=== PATIENT | female | born 1985 | race African-American/Black ===

== ENCOUNTER 2019-11-06 15:01 | Emergency (ER) | payer OTHER | END 2019-11-06 15:45 | disposition home or self-care (01) | LOC: ERS 15:01 | DX: J06.9 Acute upper respiratory infection, unspecified (principal); G43.909 Migraine, unspecified, not intractable, without status migrainosus; Z79.899 Other long term (current) drug therapy | CPT/HCPCS: 99283 ==

== ENCOUNTER 2020-11-22 12:57 | Emergency (ER) | payer BC ==
[2020-11-22 15:40] LABS: #Basophils 0.1 thou/uL (0.0-0.2); #Lymphocytes 2.4 thou/uL (1.20-3.40); #Monocytes 0.3 thou/uL (0.11-0.59); #Neutrophils 2.3 thou/uL (1.40-6.50); %Basophils 1.9 % (0.0-1.0); %Eosinophils 0.6 % (0.0-10.0); %Lymphocytes 46.5 % (21.0-51.0); %Monocytes 5.1 % (0.0-10.0); %Neutrophils 45.8 % (42.0-75.0); Hemoglobin 13.4 g/dL (12.0-16.0); Mean Corpuscular HGB CONC 32.5 g/dL (32.0-36.0); Mean Corpuscular Hemoglobin 31.1 pg (27.0-31.0); Mean Corpuscular Volume 95.7 fL (78.0-98.0); Mean Platelet Volume 7.6 fL (7.4-10.4); Platelet Count 339 thou/uL (130-400); RBC Distribution Width 11.5 % (11.5-14.5); Red Blood Cell (RBC) Count 4.29 mill/uL (4.20-5.40); White Blood Cell (WBC) Count 5.1 thou/uL (4.8-10.8)
[2020-11-22] MEDS ORDERED: Ketorolac Tromethamine 30 MG/ML VIAL ONE (15:45)
[2020-11-22 15:56] LABS: ALT (SGPT) 15 U/L (8-55); AST (SGOT) 18 U/L (5-34); Albumin 4.4 g/dL (3.5-5.0); Alkaline Phosphatase 61 U/L (40-110); Anion Gap 14 mmol/L (10-20); BUN (Urea Nitrogen) 9 mg/dL (7.0-18.7); Bilirubin, Total 0.8 mg/dL (0.2-1.2); Calc. Creatinine Clearance 0 mL/min (70-130); Calcium 9.8 mg/dL (7.8-10.44); Carbon Dioxide 21 mmol/L (22-29); Chloride 107 mmol/L (98-107); Globulin 3.4 g/dL (2.4-3.5); Glucose 85 mg/dL (70-105); Lipase 10 U/L (8-78); Potassium 4.3 mmol/L (3.5-5.1); Protein, Total 7.8 g/dL (6.0-8.3); Sodium 138 mmol/L (136-145)
== END 2020-11-22 16:21 | disposition home or self-care (01) ==
LOC: ERS 12:57
DX: S46.912A Strain of unspecified muscle, fascia and tendon at shoulder and upper arm level, left arm, initial encounter (principal); R07.9 Chest pain, unspecified; G43.909 Migraine, unspecified, not intractable, without status migrainosus; Z79.899 Other long term (current) drug therapy; X58.XXXA Exposure to other specified factors, initial encounter
CPT/HCPCS: 36415; 80053; 83690; 84484; 85025; 93005; 96372; J1885

== ENCOUNTER 2023-03-11 19:28 | Observation (INO) | payer OTHER, BC ==
[2023-03-11] MEDS ORDERED: Ondansetron PF 4 MG/2 ML Vial IVP PRN (21:04)
[2023-03-11] MEDS ORDERED: Morphine 4 MG/ML VIAL SLOW IVP PRN (21:04)
[2023-03-11] MEDS ORDERED: traMADol HCl 50 MG TAB PO PRN (21:04)
[2023-03-11] MEDS ORDERED: Morphine 2 MG/ML VIAL SLOW IVP PRN (21:04)
[2023-03-11] MEDS ORDERED: Acetaminophen 325 MG TAB PO PRN (21:04)
[2023-03-11] MEDS ORDERED: Sodium Chloride 0.9% 1,000 ML IV SCH (21:15)
[2023-03-11 21:36] LABS: #Basophils 0.1 thou/uL (0.0-0.2); #Eosinphils 0.1 thou/uL (0.0-0.7); #Monocytes 0.5 thou/uL (0.11-0.59); #Neutrophils 2.9 thou/uL (1.40-6.50); %Basophils 1.3 % (0.0-1.0); %Eosinophils 0.8 % (0.0-10.0); %Lymphocytes 40.9 % (21.0-51.0); %Neutrophils 47.8 % (42.0-75.0); Hematocrit 34.8 % (36.0-47.0); Hemoglobin 11.6 g/dL (12.0-16.0); Mean Corpuscular HGB CONC 33.3 g/dL (32.0-36.0); Mean Corpuscular Hemoglobin 31.4 pg (27.0-31.0); Mean Corpuscular Volume 94.3 fl (78.0-98.0); Mean Platelet Volume 9.3 fL (7.4-10.4); Platelet Count 280 10x3/uL (130-400); RBC Distribution Width 13.2 % (11.5-14.5); Red Blood Cell (RBC) Count 3.69 mill/uL (4.20-5.40)
[2023-03-11 21:55] LABS: Anion Gap 10 mmol/L (10-20); BUN (Urea Nitrogen) 10 mg/dL (7.0-18.7); Calc. Creatinine Clearance 0 mL/min (70-130); Calcium 8.3 mg/dL (7.8-10.44); Carbon Dioxide 17 mmol/L (22-29); Chloride 115 mmol/L (98-107); Estimated GFR 94; Glucose 81 mg/dL (70-105); Potassium 3.6 mmol/L (3.5-5.1); Sodium 138 mmol/L (136-145)
[2023-03-11 22:29] VITALS: BMI 23.3
[2023-03-12] MEDS ORDERED: Lactated Ringer's 1,000 ML IV SCH (01:00)
[2023-03-12 05:24] LABS: #Basophils 0.1 thou/uL (0.0-0.2); #Eosinphils 0.1 thou/uL (0.0-0.7); #Monocytes 0.4 thou/uL (0.11-0.59); #Neutrophils 1.5 thou/uL (1.40-6.50); %Basophils 1.6 % (0.0-1.0); %Eosinophils 1.1 % (0.0-10.0); %Lymphocytes 55.7 % (21.0-51.0); %Monocytes 8.5 % (0.0-10.0); %Neutrophils 32.9 % (42.0-75.0); Hematocrit 34.5 % (36.0-47.0); Hemoglobin 11.5 g/dL (12.0-16.0); Mean Corpuscular HGB CONC 33.3 g/dL (32.0-36.0); Mean Corpuscular Hemoglobin 31.3 pg (27.0-31.0); Mean Platelet Volume 9.6 fL (7.4-10.4); Platelet Count 255 10x3/uL (130-400); RBC Distribution Width 13.4 % (11.5-14.5); Red Blood Cell (RBC) Count 3.67 mill/uL (4.20-5.40); White Blood Cell (WBC) Count 4.5 10x3/uL (4.8-10.8)
[2023-03-12 05:48] LABS: Anion Gap 12 mmol/L (10-20); BUN (Urea Nitrogen) 10 mg/dL (7.0-18.7); Calc. Creatinine Clearance 92 mL/min (70-130); Calcium 8.5 mg/dL (7.8-10.44); Carbon Dioxide 18 mmol/L (22-29); Chloride 115 mmol/L (98-107); Estimated GFR 94; Glucose 71 mg/dL (70-105); Potassium 3.7 mmol/L (3.5-5.1); Sodium 141 mmol/L (136-145)
[2023-03-12 08:14] VITALS: BP 108/69; TEMP 98.3
[2023-03-12] MEDS ORDERED: Famotidine/PF 20 mg/2ml Vial SLOW IVP SCH (09:00)
== END 2023-03-12 12:23 | disposition home or self-care (01) ==
LOC: SURG B 20:29
PROVIDERS: ADMIT Surgery; ATTEND Surgery
DX: K62.5 Hemorrhage of anus and rectum (principal); G43.909 Migraine, unspecified, not intractable, without status migrainosus; F41.9 Anxiety disorder, unspecified; F17.210 Nicotine dependence, cigarettes, uncomplicated; V49.50XA Passenger injured in collision with unspecified motor vehicles in traffic accident, initial encounter
CPT/HCPCS: 36415; 80048; 85025; 96361; 96374; G0378; J7050; J7120; S0028